=== PATIENT | male | born 1995 | race Two or more races ===

== ENCOUNTER 2018-08-11 18:56 | Emergency (ER) | payer MEDICAID, OTHER ==
[~2018-08-11] VITALS: Ht 177.8 cm; Wt 81.6 kg
[2018-08-11 19:23] VITALS: BP 137/74
[2018-08-11] MEDS ORDERED: TETANUS-DIPTH-ACEL PERTUSSIS 0.5ML SYRG IM ONE (19:45)
[2018-08-11] MEDS ORDERED: IBUPROFEN 800 MG TAB PO ONE (19:45)
[2018-08-11] MEDS ORDERED: cefTRIAXone SOD 1,000 MG VL IM ONE (20:00)
[2018-08-11] MEDS ORDERED: NEOMYCIN-BACITRACIN-POLYM 15GM TOP OINT TOP ONE (22:30)
== END 2018-08-11 20:18 | disposition home or self-care (01) ==
LOC: ER 19:03
DX: S61.432A Puncture wound without foreign body of left hand, initial encounter (principal); W54.0XXA Bitten by dog, initial encounter; Y93.89 Activity, other specified; Y99.8 Other external cause status; Y92.89 Other specified places as the place of occurrence of the external cause
CPT/HCPCS: 90471; 90715; 96372; 99283; J0696